=== PATIENT | female | born 1970 | race Caucasian/White ===

== ENCOUNTER 2019-05-12 16:14 | Emergency (ER) | payer OTHER ==
--- NOTE | 2019-05-12 17:13 | EDM.PDOC ---
ED HPI GENERAL MEDICAL PROBLEM - General Chief Complaint: Lower Extremity Injury/Pain Time Seen by Provider: 05/12/19 17:00 Source of Information: Reports: Patient History Limitations: Reports: No Limitations - History of Present Illness INITIAL COMMENTS - FREE TEXT/NARRATIVE: 48-year-old female dropped a crowbar on her left great toe within the last hour , has pain and swelling at the proximal aspect of the toe. No other injury. Onset: Sudden Duration: Hour(s): Location: Reports: Lower Extremity, Left Associated Symptoms: Reports: No Other Symptoms - Related Data Allergies Allergy/AdvReac Type Severity Reaction Status Date / Time No Known Allergies Allergy Verified 05/12/19 16:57 Home Meds: Home Meds Metoprolol Succinate 05/12/19 [History] hydroCHLOROthiazide [Hydrochlorothiazide] 05/12/19 [History] Past Medical History Cardiovascular History: Reports: Hypertension Social & Family History - Tobacco Use Smoking Status *Q: Never Smoker Review of Systems - Review of Systems Review Of Systems: See Below Constitutional: Denies: Fever Respiratory: Reports: No Symptoms Cardiovascular: Reports: No Symptoms, Lightheadedness GI/Abdominal: Reports: No Symptoms Skin: Denies: Bruising ED EXAM, GENERAL - Physical Exam Exam: See Below Exam Limited By: No Limitations General Appearance: Alert, No Apparent Distress Respiratory/Chest: No Respiratory Distress (Uncomfortable but not distressed), Lungs Clear Extremities: Other (Palpation of the proximal phalange of the left great toe is tender but there is no deformity or crepitus) Neurological: Alert, Oriented Skin Exam: Warm, Dry, Other (No significant bruising) Course - Vital Signs Last Recorded V/S: Last Vital Signs Temp 95.9 F 05/12/19 17:03 Pulse 72 05/12/19 17:03 Resp 16 05/12/19 17:03 BP 149/99 H 05/12/19 17:03 Pulse Ox 99 05/12/19 17:03 - Re-Assessments/Exams Free Text/Narrative Re-Assessment/Exam: 05/12/19 17:13 an x-ray of the left great toe was obtained. 05/12/19 17:24 X-rays negative. Patient was encouraged to increase activity as tolerated, anti- inflammatories for discomfort and recheck next week if not improving. Departure - Departure Time of Disposition: 17:30 Disposition: Home, Self-Care Condition: Good Clinical Impression: Contusion of toe of left foot Qualifiers: Encounter type: initial encounter Toe: great toe Damage to nail status: without damage Qualified Code(s): S90.112A - Contusion of left great toe without damage to nail, initial encounter - Discharge Information Instructions: Contusion, [id number] Referrals: PCP,None [Primary Care Provider] - Forms: ED Department Discharge Care Plan Goals: Ice to the toe may be helpful, elevation and anti-inflammatories for the next 1- 2 days. Increase activity as tolerated and recheck in 4-5 days if not improving satisfactorily.
--- NOTE | 2019-05-12 17:37 | CRLCR ---
Indication: Injury, pain Technique: Three views left great toe Comparison: None Findings: Bones: Alignment is normal. No fractures or bone lesions. Joint spaces: Unremarkable. Soft tissues: Soft tissue swelling. Impression: No fracture. Dictated by Alex Duggan MD @ May 12 2019 5:34PM Signed by Dr. Alex Duggan @ May 12 2019 5:35PM
== END 2019-05-12 17:30 | disposition home or self-care (01) ==
LOC: JP.ED 16:14
DX: S90.112A Contusion of left great toe without damage to nail, initial encounter (principal); W20.8XXA Other cause of strike by thrown, projected or falling object, initial encounter
CPT/HCPCS: 73660-TA; 99283-25

== ENCOUNTER 2022-11-09 10:56 | Emergency (ER) | payer BC | END 2022-11-09 12:54 | disposition home or self-care (01) | LOC: JP.ED 10:56 | DX: I10 Essential (primary) hypertension (principal); Z86.16 Personal history of COVID-19 | CPT/HCPCS: 36415; 80048; 84484; 85025; 99283 ==

== ENCOUNTER → 2024-11-26 | Day surgery (SDC) | payer BC ==
[~2024-11-26] MED LIST: Propofol 200 MG/20 ML SDV ONE; fentaNYL 50 MCG/ML SDV ONE
[2024-11-26] MEDS: Lactated Ringers 1,000 ML IV SCH (07:54)
== END ==
LOC: JP.SDS 07:19
PROVIDERS: ATTEND Surgery
DX: Z12.11 Encounter for screening for malignant neoplasm of colon (principal); I10 Essential (primary) hypertension
CPT/HCPCS: 00812; 45378; J2704; J3010; J7120